=== PATIENT | male | born 1975 ===

== ENCOUNTER 2017-07-12 05:52 | Day surgery (SDC) | payer OTHER ==
[~2017-07-12] VITALS: Ht 180.3 cm; Wt 98.9 kg
--- NOTE | 2017-07-12 08:45 | NUR ---
07/12/17 0845 Diya Lowe 0804 AIRWAY REMOVED 0806 O2 REMOVED 0840 PT GETTING DRESSED WITH GAURDS. DENINES ANY PAIN OR NAUSEA.
--- NOTE | 2017-07-14 07:17 | OR ---
[facility] [address] [place], [place] [address] Signed DATE OF OPERATION: 07/12/2017 SURGEON: Clif Rose MD PREOPERATIVE DIAGNOSIS: Painful retained hardware, left wrist. POSTOPERATIVE DIAGNOSIS: Painful retained hardware, left wrist. PROCEDURE: Removal of hardware, left wrist (buried plate and multiple screws). ANESTHESIA: [place] block with sedation. SPECIMENS: There were no specimens. COMPLICATIONS: There were no complications. TOURNIQUET TIME: About 40 minutes. WHAT WAS DONE: The patient was taken to the operating room. After anesthesia was induced and airway secured, the patient was positioned, prepped and draped in a routine sterile fashion. Using his old scar as a guide, a zigzag incision was made over the FCR tendon sheath. Skin was divided sharply. Subcutaneous tissue was bluntly spread. The FCR tendon sheath was opened on the volar aspect and the FCR and all the remaining volar contents were swept in an ulnar direction. The plate was then exposed with the use of a small periosteal elevator. We then used the screw automation driver to remove all of the screws and then delivered the plate out of the wound. The wound was gently irrigated, closed in standard fashion, and a sterile dressing applied. The patient was awakened and taken to recovery room, where he arrived in stable condition. Counts were correct and antibiotic protocols were followed. Clif Rose MD Electronically Signed By: CLIF ROSE MD 07/14/17 0717 PATIENT NAME: RUTH BEY OPERATIVE REPORT DATE OF : 79 PHYSICIAN: CLIF ROSE MD REPORT #: [id number] REPORT IS CONFIDENTIAL AND NOT TO BE RELEASED WITHOUT AUTHORIZATION [address] [place], [place] [address] Signed B/MODL /[id number] Electronically Signed By: CLIF ROSE MD 07/14/17 0717 PATIENT NAME: RUTH BEY MARVIN OPERATIVE REPORT DATE OF : 79 PHYSICIAN: CLIF ROSE MD REPORT #: [id number] REPORT IS CONFIDENTIAL AND NOT TO BE RELEASED WITHOUT AUTHORIZATION
== END 2017-07-12 08:43 | disposition home or self-care (01) ==
LOC: OPS 05:52 → DS 05:52 → OPS 06:45 → DS 08-02 06:45
PROVIDERS: Orthopaedic Surgery
PROC: 0XP70YZ Removal of Other Device from Left Upper Extremity, Open Approach (ICD-10-PCS; principal; 2017-07-12 06:45)
DX: T84.84XA Pain due to internal orthopedic prosthetic devices, implants and grafts, initial encounter (principal)
CPT/HCPCS: 01820; J0690; J1885; J2250; J2405; J2704; J3010; J7120